=== PATIENT | female | born 1995 | race Caucasian/White ===

== ENCOUNTER 2016-12-06 15:32 | Emergency (ER) | payer OTHER ==
[~2016-12-06] VITALS: Ht 160 cm; Wt 63.5 kg
[~2016-12-06 15:32] MED LIST: BUTALB-ACETAMI1 EAC2 PO; DILAUDID2 MG PO; FEOSOL325 MG PO; FLAGYL500 MG PO; IBUPROFEN800 MG PO; KEFLEX500 MG PO; METHYLERGONOVI0.2 MG PO; NORCO 5-325 TA1 EACH PO; NORCO 7.5-3251 EACH PO; PERCOCET 5-3251 EACH PO; SPRINTEC1 EACH PO; SULFAMETHOXAZO1 EACH PO; TYLENOL325 MG PO; VITAFOL-OB+DHA1 EACH PO; ZANTAC 7575 MG PO
[2016-12-06] MEDS ORDERED: LEVOFLOXACIN750 MG PO (19:03)
--- OUTSIDE RECORDS SUMMARY | 2016-12-06 20:58 | XMS ---
Demographics + + + | Address | [address] | | | [address] | | | [place] [address] | + + + | Preferred Language | Unknown | + + + | Marital Status | Unknown | + + + | Episcopal Affiliation | Unknown | + + + | Race | Unknown | + + + | Ethnic Group | Unknown | + + + Author + + + | Author | [facility] | + + + | Organization | [facility] | + + + | Address | [address] | | | [place] [address] | + + + | Phone | | + + + Care Team Providers + + + + | Care Seafood Manager Name | Role | Phone | + + + + Unavailable | Unavailable | + + + + PROBLEMS +---------+ + + +--------+ + + | Type | Condition | ICD9-CM | [id number] | Onset | Condition | SNOMED | | | | Code | Code | Dates | Status | Code | +---------+ + + +--------+ + + | Problem | BOM | H66.93 | | | Active | [id number] | | | (bilateral | | | | | | | | otitis | | | | | | | | media) | | | | | | +---------+ + + +--------+ + + | Problem | UTI | 599.0 | | | Active | [id number] | | | (urinary | | | | | | | | tract | | | | | | | | infection) | | | | | | +---------+ + + +--------+ + + | Problem | Cellulitis | 616.10 | | | Active | [id number] | | | of labia | | | | | | | | majora | | | | | | +---------+ + + +--------+ + + ALLERGIES + + + + +---------+ | Substance | Reaction | Event Type | Date | Status | + + + + +---------+ | N.K.DMichelleA. | Unknown | Non Drug | Aug, | Unknown | | | | Allergy | | | + + + + +---------+ SOCIAL HISTORY No smoking Hx information available PLAN OF CARE + +---------+ | Activity | Details | + +---------+ +---+ | | +---+ + + + | Follow Up | prn Reason:null | + + + | Pending Test | Urinalysis, Dip (IH) | + + + | Pending Test | Urinalysis | + + + VITAL SIGNS + + + + | Height | 63 in | 2016-09-01 | + + + + | Weight | 140.7 lbs | 2016-09-01 | + + + + | BMI | 24.92 kg/m2 | 2016-09-01 | + + + + | Temperature | 98.1 degrees Fahrenheit | 2016-09-01 | + + + + | Heart Rate | 82 /min | 2016-09-01 | + + + + | Blood pressure systolic | 104 mm Hg | 2016-09-01 | + + + + | Blood pressure diastolic | 66 mm Hg | 2016-09-01 | + + + + MEDICATIONS + + + + + + + +--------+ | Medicati | Instruct | Dosage | Frequenc | Start | End Date | Duration | Status | | on | ions | | y | Date | | | | + + + + + + + +--------+ | Ondanset | | take 1-2 | | Aug, | | | Active | | liseth HCl | | tablets | | 2016 | | | | | 4 MG | | po q6h | | | | | | | | | prn | | | | | | | | | nausea | | | | | | + + + + + + + +--------+ | Cipro | Orally | 1 tablet | 12h | Aug, | 26 Ace, | 7 days | Active | | 500 MG | Twice a | | | 2016 | 2016 | | | | | day | | | | | | | + + + + + + + +--------+ | Pyridium | Orally | 1 tablet | 8h | Aug, | Aug, | 2 day(s) | Active | | 200 MG | Three | after | | 2016 | 2016 | | | | | times a | meals | | | | | | | | day | | | | | | | + + + + + + + +--------+ RESULTS No Results PROCEDURES + + + + + | Procedure | Date Ordered | Related Diagnosis | Body Site | + + + + + | LAB URINALYSIS (DIP | September 01, 2016 | | | | STICK ONLY | | | | + + + + + | Est Level III | September 01, 2016 | | | | Intermediate | | | | + + + + + IMMUNIZATIONS No Known Immunizations"
== END 2016-12-06 19:50 | disposition home or self-care (01) ==
LOC: ED 15:32
DX: K52.9 Noninfective gastroenteritis and colitis, unspecified (principal); F17.200 Nicotine dependence, unspecified, uncomplicated; Z98.890 Other specified postprocedural states
CPT/HCPCS: 80053; 81001; 83690; 84703; 85025; 99283

== ENCOUNTER 2017-08-07 07:00 | Day surgery (SDC) | payer BC ==
[~2017-08-07] VITALS: Ht 160 cm; Wt 61.2 kg
[~2017-08-07 07:00] MED LIST changes: +ACID CONTROL150 MG PO; +DASETTA1 EAC1 PO; +LEVOFLOXACIN750 MG PO
--- NOTE | 2017-08-07 10:37 | NUR ---
08/07/17 1037 Randa Wilkins 1032 PATIENT ARRIVES TO PACU UNRESPONSIVE TO PAIN OR VERBAL STIMULI. RESP EVEN AND UNLABORED, MASK AT 6 LITERS.
--- NOTE | 2017-08-07 11:23 | OR ---
[facility] [address] [place], [place] [address] Signed DATE OF OPERATION: 08/07/2017 SURGEON: Kasia Quinonez MD PREOPERATIVE DIAGNOSIS: Chronic cholecystitis. POSTOPERATIVE DIAGNOSIS: Chronic cholecystitis with cholelithiasis. PROCEDURE: Laparoscopic cholecystectomy with intraoperative cholangiogram. ESTIMATED BLOOD LOSS: None. FINDINGS: yLn indeed had multiple tiny 1-2 mm yellow and dark stones in the gallbladder. The intraoperative cholangiogram was unremarkable. INDICATIONS: Lyn is a 21-year-old female who lives alone with her 2-year-old son. She has a job here locally and goes to athletic club weekly and is very athletic and in good condition. She was having upper abdominal pain radiating through to her back. The symptoms had persisted. She went to her primary care provider. Her gallbladder ultrasound was unremarkable. She then was sent for HIDA scan and her gallbladder ejection fraction was low at 27%. The injection of the CCK reproduced her symptoms. She said it was a bad couple of days after the HIDA scan. Consequently, she was asked to see me as a general surgeon. I met with Lyn in the office and we had a long discussion regarding her findings. I also gave her a [employer] brochure and we looked at the location and function of the gallbladder. She has already been on Internet and talking to family members and is quite educated about the gallbladder. We discussed laparoscopic versus open cholecystectomy. She understands the expected intraop and postop course. There is risk of surgery including, but not limited to bleeding, infection, scarring, change in contour of the skin, damage to bowel, damage to the main bile duct, incisional hernias and other unforeseen comorbidities. She had expressed understanding and wished to proceed. PROCEDURE NOTE: Lyn was taken into our operating room and placed in the supine position under general Electronically Signed By: KASIA QUINONEZ MD 08/07/17 1123 PATIENT NAME: LYN WRIGHT OPERATIVE REPORT DATE OF : [birth year] REPORT #: [id number] PHYSICIAN: KASIA QUINONEZ MD PCP: DEE DEE ARANDA PA-C REPORT IS CONFIDENTIAL AND NOT TO BE RELEASED WITHOUT AUTHORIZATION [facility] [address] [place], [place] [address] Signed endotracheal tube anesthesia. She was given preoperative antibiotics along with subcutaneous heparin. SCDs were utilized. She was then prepped and draped in the usual sterile fashion. All trocars were placed in usual positions under direct visualization of camera without difficulty. We had taken pictures throughout for photodocumentation. The gallbladder was grasped and elevated in the right upper quadrant. The triangle of Calot was dissected free. We had placed the cholangiocatheter into the cystic duct. We saw just a tiny yellow stone next to our cholangiocatheter. The intraoperative cholangiogram was performed and found to be unremarkable. There were no filling defects and the contrast flowed readily into the duodenum. The cystic duct stump was then secured with a PDS Endoloop and 2 clips were placed across the cystic duct stump to cindy its location. After this, the gallbladder was carefully removed from the gallbladder fossa and placed into an EndoCatch bag. During that process, a small hole was made in the gallbladder and we saw healthy green bile come out with multiple small dark and yellow 1-2 mm stones. After this, the right upper quadrant was irrigated and suctioned out until clear. We used our laparoscopic suturing device to pass 0 Vicryl suture on either side of the fascia of the subxiphoid trocar site. This was tied down to close this fascia primarily. After this, the trocars were removed and all the gas was allowed to escape. The gallbladder was passed off to our circulating nurse. The gallbladder was opened on the back table and pictures were taken for photodocumentation. We closed the fascia of the supraumbilical trocar site with interrupted [id number]-cb-[id number] and simple 0 Vicryl sutures. Local anesthetic was then copiously injected into all trocar sites. Each trocar site was irrigated and suctioned out until clear. The skin and dermis of each trocar site were then closed with interrupted 3-0 subcuticular Monocryl sutures. Dry gauze and tape were applied to all incisions. Lyn was then awakened from our anesthesia, extubated in the OR, and taken to recovery room in stable condition. Kasia Quinonez MD ALB/MODL /[id number] cc: MD Dee Dee Navarrete PA-C Electronically Signed By: KASIA QUINONEZ MD 08/07/17 1123 PATIENT NAME: LYN WRIGHT OPERATIVE REPORT DATE OF : [birth year] REPORT #: [id number] PHYSICIAN: KASIA QUINONEZ MD PCP: DEE DEE ARANDA PA-C REPORT IS CONFIDENTIAL AND NOT TO BE RELEASED WITHOUT AUTHORIZATION [facility] [address] [place], [place] [address] Signed Copies: KASIA QUINONEZ MD, CHLOE K PA-C ~ Electronically Signed By: KASIA QUINONEZ MD 08/07/17 1123 PATIENT NAME: LYN WRIGHT OPERATIVE REPORT DATE OF : [birth year] REPORT #: [id number] PHYSICIAN: KASIA QUINONEZ MD PCP: DEE DEE ARANDA PA-C REPORT IS CONFIDENTIAL AND NOT TO BE RELEASED WITHOUT AUTHORIZATION
--- NOTE | 2017-08-07 11:29 | NUR ---
PT WAS SITTING UP IN BED-ALERT, ORIENTED AND SUPPORTED BY HER MOTHER. SHE SEEMED AT EASE, INFORMED AND READY FOR SOME RELIEF. PT DECLINED PRAYER AT THIS TIME. WILL FOLLOW NEEDED
--- NOTE | 2017-08-07 11:36 | NUR ---
LE 1115 PT ARRIVED VIA STRETCHER FROM PACU. PT AWAKE, TALKING WITH MOTHER AND DAUGHTER. PT C/O SLIGHT PAIN BUT IS DOING WELL. WATER AND PUDDING PROVIDED. NO FURTHER NEEDS AT THIS TIME. CALL LIGHT IN REACH, FAMILY AT BEDSIDE.
--- NOTE | 2017-08-07 12:03 | NUR ---
IN TO CHECK ON PT, PT AWAKE WATCHING TV. MOTHER AND DAUGHTER AT BEDSIDE. PT RATES PAIN 7/10, DENIES NAUSEA. ORAL MEDICATIONS GIVEN. SOUP AND SANDWICH REQUESTED, ORDERED. NO FURTHER NEEDS AT THIS TIME. CALL LIGHT IN REACH.
--- NOTE | 2017-08-07 13:33 | NUR ---
CELSO 1315 IN TO CHECK ON PT, PT AWAKE WATCHING TV. FAMILY AND FRIENDS AT BEDSIDE. PT DENIES NAUSEA. RATES PAIN A 6/10, BUT STATES "I AM OKAY." PT ON CELL PHONE AND LAUGHING WITH FRIENDS WHILE RN IN ROOM. DENIES THE NEED TO URINATE AT THIS TIME. FRESH ICE GIVEN. JUICE GIVEN. NO FURTHER NEEDS AT THIS TIME. CALL LIGHT IN REACH.
--- NOTE | 2017-08-07 13:47 | NUR ---
PT CALLED, ASSISTED UP TO BATHROOM. PT ABLE TO VOID. BACK TO BED, TOLERATED WELL. PT ASKING WHEN SHE CAN GO HOME. PT DISCUSSED DISCHARGE. IV DC'D. PT GETTING DRESSED WITH HELP OF MOTHER.
--- NOTE | 2017-08-07 14:09 | NUR ---
LE 1350 IN TO PT ROOM TO GIVEN DC INSTRUCTIONS. PT DRESSED, TOLERATED WELL. RX GIVEN. PT WHEELED OUT TO [facility] WAITING IN CAR.
[2017-08-07] MEDS ORDERED: NORCO 5-325 TA1 EACH PO (18:28)
== END 2017-08-07 13:55 | disposition home or self-care (01) ==
LOC: DS 07:00
PROVIDERS: Colon & Rectal Surgery
PROC: BF13YZZ Fluoroscopy of Gallbladder and Bile Ducts using Other Contrast (ICD-10-PCS; 2017-08-07)
PROC: 0FT44ZZ Resection of Gallbladder, Percutaneous Endoscopic Approach (ICD-10-PCS; principal; 2017-08-07 08:45)
DX: K81.1 Chronic cholecystitis (principal); G43.909 Migraine, unspecified, not intractable, without status migrainosus; F17.210 Nicotine dependence, cigarettes, uncomplicated; Z79.899 Other long term (current) drug therapy
CPT/HCPCS: 00790; 74300; J0690; J1100; J1170; J1644; J1885; J2250; J2405; J2704; J3010; J7120; Q9967

== ENCOUNTER 2017-08-07 18:12 | Emergency (ER) | payer BC ==
[~2017-08-07] VITALS: Ht 160 cm; Wt 61.2 kg
[2017-08-07] MEDS ORDERED: NORCO 5-325 TA1 EACH PO (18:28)
== END 2017-08-07 19:21 | disposition home or self-care (01) ==
LOC: ED 18:12
DX: T81.30XA Disruption of wound, unspecified, initial encounter (principal); Z87.891 Personal history of nicotine dependence; Z79.899 Other long term (current) drug therapy; Z90.49 Acquired absence of other specified parts of digestive tract
CPT/HCPCS: 99282

== ENCOUNTER 2019-01-09 21:03 | Inpatient (IN) | payer OTHER ==
[~2019-01-09] VITALS: Ht 160 cm; Wt 82.0 kg
--- NOTE | 2019-01-09 23:06 | PR ---
[facility] [address] [facility] [place], [place] [address] Signed Progress Notes IP Datetime Report Generated by CPN: 01/09/2019 23:06 PROGRESS NOTES: [id number] Impression: Normal progression of labor Procedures: Artificial ROM Plan: Continue present management; Anticipate Vaginal Delivery VITAL SIGNS: [id number] Vital Signs: Reviewed; Within Normal Limits EXAM: [id number] Dilatation: 6.0 Effacement: 80 Station: -3 Uterine Contractions: every 2-3 minutes MEMBRANES: [id number] Membrane Status: Ruptured Amniotic Fluid Color: Clear ROM Note: AROM with large amount fluid Comments: Contracitons getting stronger, will call for Epidural. Fetus A: [id number] FHR Baseline: 135 Variability: Moderate 6-25bpm Accelerations: 15X15 Fetus B: [id number] Signing Physician: Mervin Bentley MD Copies: ~ *Electronically Signed* 01/09/19 1482 MERVIN BENTLEY MD PATIENT NAME: LYN WRIGHT PROGRESS NOTE DATE OF : [birth year] PHYSICIAN: MERVIN BENTLEY MD RPT #: [id number] REPORT IS CONFIDENTIAL AND NOT TO BE RELEASED WITHOUT AUTHORIZATION
[2019-01-10] MEDS ORDERED: PRENATAL VITAM1 EACH PO (03:35)
[2019-01-10] MEDS ORDERED: TUMS200 MG PO (03:35)
--- NOTE | 2019-01-10 12:12 | PR ---
[facility] [address] [facility] [place], [place] [address] Signed PP Progress Notes Datetime Report Generated by CPN: 01/10/2019 12:12 SUBJECTIVE: [id number] Pain: Within normal limits Nausea/Vomiting: Denies Vital Signs: [id number] Vital Signs: Reviewed; Within Normal Limits EXAM: [id number] Abdomen/Uterus: Normal Lochia: Normal Extremities: Normal IMPRESSION/PLAN/PROCEDURES: [id number] Impression: Normal progression Plan: Continue present management Procedures: None Progress Notes: Doing well, without complaint. Signing Physician: Mervin Bentley MD Copies: ~ *Electronically Signed* 01/10/19 1212 MERVIN BENTLEY MD PATIENT NAME: LYN WRIGHT PROGRESS NOTE DATE OF : [birth year] PHYSICIAN: MERVIN BENTLEY MD RPT #: [id number] REPORT IS CONFIDENTIAL AND NOT TO BE RELEASED WITHOUT AUTHORIZATION
--- NOTE | 2019-01-11 08:01 | PR ---
[facility] [address] [facility] [place], [place] [address] Signed PP Progress Notes Datetime Report Generated by CPN: 01/11/2019 08:01 SUBJECTIVE: [id number] Pain: Within normal limits Nausea/Vomiting: Denies Vital Signs: [id number] Vital Signs: Reviewed; Within Normal Limits EXAM: [id number] Cardiovascular: Not Done Respiratory: Not Done Abdomen/Uterus: Abnormal Lochia: Normal Vulva/Perineum: Not Done Breasts: Not Done CVA Tenderness: Not Done Extremities: Normal Incision: Not Applicable Progress: Normal Exam Comments: Fundus firm, NT @ U-1. IMPRESSION/PLAN/PROCEDURES: [id number] Impression: Normal progression Plan: Discharge Procedures: None Progress Notes: Doing well. She is ready for D/C. Signing Physician: Gracy Ball MD Copies: ~ *Electronically Signed* 01/11/19800 GRACY BALL MD PATIENT NAME: LYN WRIGHT PROGRESS NOTE DATE OF : [birth year] PHYSICIAN: GRACY BALL MD RPT #: [id number] REPORT IS CONFIDENTIAL AND NOT TO BE RELEASED WITHOUT AUTHORIZATION
== END 2019-01-11 12:05 | disposition home or self-care (01) | DRG 807 ==
LOC: FBCO 21:03 → FBC 21:40
PROVIDERS: ADMIT General Practice
PROC: 10907ZC Drainage of Amniotic Fluid, Therapeutic from Products of Conception, Via Natural or Artificial Opening (ICD-10-PCS; 2019-01-09)
PROC: 10E0XZZ Delivery of Products of Conception, External Approach (ICD-10-PCS; principal; 2019-01-10)
PROC: 0HQ9XZZ Repair Perineum Skin, External Approach (ICD-10-PCS; 2019-01-10)
PROC: 00HU33Z Insertion of Infusion Device into Spinal Canal, Percutaneous Approach (ICD-10-PCS; 2019-01-10)
PROC: 3E0R3BZ Introduction of Anesthetic Agent into Spinal Canal, Percutaneous Approach (ICD-10-PCS; 2019-01-10)
DX: O69.1XX0 Labor and delivery complicated by cord around neck, with compression, not applicable or unspecified (principal); Z37.0 Single live birth; O70.0 First degree perineal laceration during delivery; Z3A.39 39 weeks gestation of pregnancy; O99.62 Diseases of the digestive system complicating childbirth; K21.9 Gastro-esophageal reflux disease without esophagitis; Z79.899 Other long term (current) drug therapy; Z87.891 Personal history of nicotine dependence; Z86.19 Personal history of other infectious and parasitic diseases
CPT/HCPCS: 01960; 36415; 85027; J2590; J2795; J7121

== ENCOUNTER 2020-08-22 06:54 | Day surgery (SDC) | payer BC ==
[~2020-08-22 06:54] MED LIST changes: +PRENATAL VITAM1 EACH PO; +PROBIOTIC1 EAC1 PO; +TUMS200 MG PO; +VALTREX500 MG PO
--- NOTE | 2020-08-22 07:07 | NUR ---
[facility] RAPID COVID TEST DONE PER ORDER. COVID TEST COLLECTED FROM BOTH NARES W/O ISSUE. PT TOLERATED WELL.
[2020-08-22] MEDS ORDERED: IBU600 MG PO (07:27)
[2020-08-22] MEDS ORDERED: HYDROCODON-ACE1 EA10 PO (10:30)
[2020-08-22] MEDS ORDERED: IBUPROFEN800 MG PO (10:30)
--- NOTE | 2020-08-22 10:37 | NUR ---
08/22/20 1037 Pura Palma 1007 PT ARRIVED IN PACU SLEEPY WITH NO C/O'S. 1015 DR AT BEDSIDE TALKING WITH PT. 1030 C/O ABD CRAMPING 06/23. DECLINED PAIN MED AT THIS TIME. RESTING.
--- NOTE | 2020-08-23 12:04 | PATH ---
[facility] [address] [place], [place] [address] Signed SPECIMEN(S): A PRODUCTS OF CONCEPTION SPECIMEN SOURCE: A. PRODUCTS OF CONCEPTION CLINICAL HISTORY: Missed AB. Suction DC. FINAL PATHOLOGIC DIAGNOSIS: Products of conception, curettage: - Immature chorionic villi and implantation site admixed with decidua and blood, consistent with products of conception. NAL:cml:C2NR MICROSCOPIC EXAMINATION: Histologic sections of all submitted blocks are examined by light microscopy. These findings, together with the gross examination, support the pathologic diagnosis. GROSS DESCRIPTION: The specimen, labeled "RF, products of conception," is received in formalin and consists of irregular shaped, membranous and hemorrhagic tissue fragments that aggregate measure 4.2 x 3.7 x 0.9 cm. No tissues are grossly identified. Cemetery K[employer] sections are submitted in cassettes (A1-A3). JS (under the direct supervision of a pathologist) The Gross Description was prepared using a voice recognition system. The report was reviewed for accuracy; however, sound-alike word errors, addition and/or deletions may occur. If there is any question about this report, please contact Client Services. PERFORMING LABORATORY: The technical component was performed by [facility] [address] [place] [id number] (Mobile Manager: Conchita Steward MD; CLIA# [id number]). Professional interpretation was performed by [facility], [address] [address] (CLIA# [id number]). Diagnostician: Rafaela Hennessy MD Pathologist Electronically Signed 08/23/2020 PATIENT NAME: LYN WRIGHT PATHOLOGY DATE OF : [birth year] REPORT #: [id number] PHYSICIAN: [facility] PCP: MICHELLE MULLER DO REPORT IS CONFIDENTIAL AND NOT TO BE RELEASED WITHOUT AUTHORIZATION [address] [address] Signed Copies: ~ PATIENT NAME: LYN WRIGHT PATHOLOGY DATE OF : [birth year] REPORT #: [id number] PHYSICIAN: [facility] PCP: MICHELLE MULLER DO REPORT IS CONFIDENTIAL AND NOT TO BE RELEASED WITHOUT AUTHORIZATION
--- NOTE | 2020-08-24 13:17 | OR ---
[facility] [address] [place], [place] [address] Signed DATE OF OPERATION: 08/22/2020 SURGEON: Gracy Ball MD PREOPERATIVE DIAGNOSIS: Missed . POSTOPERATIVE DIAGNOSIS: Missed . PROCEDURE: Suction D and C. ANESTHESIA: MAC. ESTIMATED BLOOD LOSS: 25 mL. DRAINS: None. INDICATIONS AND FINDINGS: The patient is a 25-year-old female, 3, para 2, approximately 8 weeks gestation, who was diagnosed with a missed AB after an episode of very heavy bleeding. She was counseled and she wished to proceed with suction D and C. She has continued to have some intermittent moderate bleeding since her diagnosis 2 days ago. At the time of surgery, exam under anesthesia revealed a closed cervix. Her uterus was approximately 8 to 9-week size and soft. There was a large amount of tissue within the cavity. DESCRIPTION OF PROCEDURE: The patient was prepped and draped in the dorsal lithotomy position. An open-sided speculum was placed and the anterior lip of the cervix was visualized and grasped with a single-tooth tenaculum. The endocervical canal was then easily dilated to a #9 dilator. Following this, stone forceps were introduced and a large amount of tissue was just simply pulled out of the uterus. The #9 curved suction curette was then introduced and suction curettage was done with removal of a small amount of tissue. Sharp curettage was briefly done and the cavity felt clean and contracted. The procedure was then terminated. The tenaculum was removed. There was no evidence of bleeding from the tenaculum site. The speculum was removed and the patient taken to the recovery Electronically Signed By: GRACY BALL MD 08/24/20 1317 PATIENT NAME: LYN WRIGHT OPERATIVE REPORT DATE OF : [birth year] REPORT #: [id number] PHYSICIAN: GRACY BALL MD PCP: MICHELLE MULLER DO REPORT IS CONFIDENTIAL AND NOT TO BE RELEASED WITHOUT AUTHORIZATION [address] [address] Signed room in good condition. All sponge and needle counts were correct. Gracy Ball MD PJW/MODL /[id number] cc: Michelle Muller DO Copies: MICHELLE MULLER DO ~ Electronically Signed By: GRACY BALL MD 08/24/20 1317 PATIENT NAME: LYN WRIGHT OPERATIVE REPORT DATE OF : [birth year] REPORT #: [id number] PHYSICIAN: GRACY BALL MD PCP: MICHELLE MULLER DO REPORT IS CONFIDENTIAL AND NOT TO BE RELEASED WITHOUT AUTHORIZATION
== END 2020-08-22 11:10 | disposition home or self-care (01) ==
LOC: DS 06:54
PROVIDERS: ATTEND Obstetrics & Gynecology
PROC: 10D17Z9 Manual Extraction of Products of Conception, Retained, Via Natural or Artificial Opening (ICD-10-PCS; principal; 2020-08-22 09:30)
DX: O02.1 Missed abortion (principal); O99.331 Smoking (tobacco) complicating pregnancy, first trimester; F17.210 Nicotine dependence, cigarettes, uncomplicated; K21.9 Gastro-esophageal reflux disease without esophagitis; Z3A.08 8 weeks gestation of pregnancy; Z20.822 Contact with and (suspected) exposure to COVID-19
CPT/HCPCS: 00952; 85025; C9803; J1885; J2001; J2250; J2405; J2704; J2765; J7121; U0003

== ENCOUNTER 2022-06-18 05:50 | Inpatient (IN) | payer BC ==
[~2022-06-18] VITALS: Ht 160 cm; Wt 82.6 kg
[~2022-06-18 05:50] MED LIST changes: +HYDROCODON-ACE1 EA10 PO; +IBU600 MG PO
--- NOTE | 2022-06-18 10:57 | PR ---
[facility] [address] [facility] [place], [place] [address] Signed Progress Notes IP Datetime Report Generated by [employer]: 06/18/2022 10:57 PROGRESS NOTES: [id number] Impression: Normal Progression of Labor Procedures: Artificial ROM; Scalp Electrode; Sterile Vag Exam Plan: Continue Present Management VITAL SIGNS: [id number] Vital Signs: Reviewed; Within Normal Limits EXAM: [id number] Dilatation: 3.0 Effacement: 70 Station: -2 Contractions: irritable MEMBRANES: E0448200 Comments: Progressing well. Will continue. Epidural prn. FETUS A: [id number] FHR Baseline: 140 Variability: Moderate 6-25bpm Accelerations: 15X15 Decelerations: None FHR Category: Category I Presentation: Vertex Comments on Fetus A: no evidence of metabolic acidosis FETUS B: [id number] Signing Physician: Gracy Ball MD Copies: ~ *Electronically Signed* 06/18/22 1057 GRACY BALL MD PATIENT NAME: LYN WALLACE PROGRESS NOTE DATE OF : [birth year] PHYSICIAN: GRACY BALL MD RPT #: [id number] REPORT IS CONFIDENTIAL AND NOT TO BE RELEASED WITHOUT AUTHORIZATION
--- NOTE | 2022-06-18 17:00 | PR ---
[facility] [address] [place], [place] [address] Signed Progress Notes IP Datetime Report Generated by CPN: 06/18/2022 17:00 PROGRESS NOTES: [id number] Impression: Reassuring Heart Rate Procedures: Intrauterine Pressure Catheter; Sterile Vag Exam Plan: Augmentation VITAL SIGNS: Y1021477 Vital Signs: Reviewed; Within Normal Limits EXAM: [id number] Dilatation: 5.0 Effacement: 85 Station: -2 Contractions: irritable MEMBRANES: [id number] Comments: Some progress and comfortable after epidural. Contractions are inadequate, however, and I feel pit augment is needed to allow for further progress. Discussed with pt and she agrees with plan. FETUS A: [id number] FHR Baseline: 140 Variability: Moderate 6-25bpm Accelerations: 15X15 Decelerations: None FHR Category: Category I Presentation: Vertex Comments on Fetus A: no evidence of metabolic acidosis FETUS B: [id number] Signing Physician: Gracy Ball MD Copies: ~ *Electronically Signed* 06/18/22 1700 GRACY BALL MD PATIENT NAME: LYN WALLACE PROGRESS NOTE DATE OF : [birth year] PHYSICIAN: GRACY BALL MD RPT #: [id number] REPORT IS CONFIDENTIAL AND NOT TO BE RELEASED WITHOUT AUTHORIZATION
--- NOTE | 2022-06-18 19:01 | PR ---
[facility] [address] [facility] [place] [address] Signed Progress Notes IP Datetime Report Generated by CPN: 06/18/2022 19:01 PROGRESS NOTES: [id number] Impression: Normal Progression of Labor Procedures: Sterile Vag Exam Plan: Continue Present Management VITAL SIGNS: [id number] Vital Signs: Reviewed; Within Normal Limits EXAM: [id number] Dilatation: 8.0 Effacement: 90 Station: -1 Contractions: irritable MEMBRANES: [id number] Comments: Progressing well. Will continue. FETUS A: [id number] FHR Baseline: 140 Variability: Moderate 6-25bpm Accelerations: 15X15 Decelerations: None FHR Category: Category I Presentation: Vertex Comments on Fetus A: no evidence of metabolic acidosis FETUS B: [id number] Signing Physician: Gracy Ball MD Copies: ~ *Electronically Signed* 06/18/221900 GRACY BALL MD PATIENT NAME: LYN WALLACE PROGRESS NOTE DATE OF : [birth year] PHYSICIAN: GRACY BALL MD RPT #: [id number] REPORT IS CONFIDENTIAL AND NOT TO BE RELEASED WITHOUT AUTHORIZATION
--- NOTE | 2022-06-19 07:27 | PR ---
[facility] [address] [facility] [place] [facility] [place], [place] [address] Signed PP Progress Notes Datetime Report Generated by CPN: 06/19/2022 07:27 SUBJECTIVE: [id number] Pain: Within Normal Limits Vital Signs: A5848007 Vital Signs: Reviewed; Within Normal Limits Cardiovascular: Not Done Respiratory: Not Done Abdomen/Uterus: Abnormal Lochia: Normal Vulva/Perineum: Not Done Breasts: Not Done CVA Tenderness: Not Done Extremities: Normal Incision: Not Applicable Progress: Normal Exam Comments: Fundus firm, NT @ U-1. H/H 9.4/29.1, WBC 15, plat 170k IMPRESSION/PLAN/PROCEDURES: [id number] Impression: Normal Progression Plan: Discharge Procedures: None Progress Notes: Doing well. She desires D/C tonight. Signing Physician: Gracy Ball MD Copies: ~ *Electronically Signed* 06/19/22726 GRACY BALL MD PATIENT NAME: LYN WALLACE PROGRESS NOTE DATE OF : [birth year] PHYSICIAN: GRACY BALL MD RPT #: [id number] REPORT IS CONFIDENTIAL AND NOT TO BE RELEASED WITHOUT AUTHORIZATION
== END 2022-06-19 20:29 | disposition home or self-care (01) | DRG 807 ==
LOC: FBC 05:50
PROVIDERS: ADMIT Obstetrics & Gynecology; ATTEND Obstetrics & Gynecology
PROC: 10E0XZZ Delivery of Products of Conception, External Approach (ICD-10-PCS; principal; 2022-06-18)
PROC: 10907ZC Drainage of Amniotic Fluid, Therapeutic from Products of Conception, Via Natural or Artificial Opening (ICD-10-PCS; 2022-06-18)
PROC: 3E0DXGC Introduction of Other Therapeutic Substance into Mouth and Pharynx, External Approach (ICD-10-PCS; 2022-06-18)
PROC: 3E0R3BZ Introduction of Anesthetic Agent into Spinal Canal, Percutaneous Approach (ICD-10-PCS; 2022-06-18)
DX: O99.334 Smoking (tobacco) complicating childbirth (principal); Z37.0 Single live birth; F17.210 Nicotine dependence, cigarettes, uncomplicated; Z3A.39 39 weeks gestation of pregnancy; Z67.10 Type A blood, Rh positive; Z90.49 Acquired absence of other specified parts of digestive tract; Z90.89 Acquired absence of other organs; Z79.899 Other long term (current) drug therapy
CPT/HCPCS: 36415; 85027; 86850; 86900; 86901; 87502; A9270; C9803; J2590; U0003